=== PATIENT | female | born 1940 | race Caucasian/White ===

== ENCOUNTER 2021-09-09 10:44 | Outpatient (CLI) | payer MEDICARE, SELFPAY ==
--- NOTE | 2021-09-09 11:07 | XR_ITS ---
WS: [id number] Chest 2 views, 09/09/2021 Clinical Data: DYSPHAGIA Comparison: PA and lateral chest, 03/25/2014. Findings: No nodules, masses or effusions are seen. The heart is normal. The pulmonary vascularity is not increased. No pneumonia or pneumothorax is seen. The aortic arch and descending thoracic aorta s how calcification and tortuosity. There is a levoscoliosis of the lower thoracic spine with a dextros coliosis of the lumbar spine and posterior fusion of the lower lumbar spine. XR/XR chest 2V* [id number] Impression: Atherosclerosis.
== END 2021-09-09 10:45 | disposition home or self-care (01) ==
PROVIDERS: PCP Family Medicine; Visit Provider Specialist
DX: R13.10 Dysphagia, unspecified (principal); I70.90 Unspecified atherosclerosis
CPT/HCPCS: 71046